=== PATIENT | female | born 1990 | race Caucasian/White ===

== ENCOUNTER 2016-07-29 17:15 | Inpatient (IN) | payer OTHER ==
[~2016-07-29] VITALS: Ht 170.2 cm; Wt 84.0 kg
[2016-07-29 17:33] VITALS: BP 133/90
[2016-07-29] MEDS ORDERED: PRENTAB9 PO (17:49)
[2016-07-29 19:15] VITALS: BP 129/88
[2016-07-29 21:20] VITALS: BP 138/91
[2016-07-29 21:47] LABS: MEAN CORPUSCULAR HEMOGLOBIN 32.3 pg (27.0-33.0); MEAN CORPUSCULAR HGB CONC 35.4 g/dl (32.0-36.5); MEAN CORPUSCULAR VOLUME 91.2 fl (80.0-96.0); RED CELL DISTRIBUTION WIDTH 12.4 % (11.5-14.5); WHITE BLOOD COUNT 10.5 K/mm3 (4.0-10.0)
[2016-07-29 21:58] LABS: ALT/SGPT 21 U/L (12-78); AST/SGOT 24 U/L (15-37); BILIRUBIN,TOTAL 0.3 MG/DL (0.2-1.0); CREATININE FOR GFR 0.79 MG/DL (0.55-1.02); GLOMERULAR FILTRATION RATE > 60.0 (>60); URIC ACID 4.8 MG/DL (2.6-6.0)
[2016-07-29 23:51] VITALS: BP 132/76
[2016-07-30] VITALS (17 sets, daily range): BP systolic 125–150; BP diastolic 65–89
[2016-07-30] MEDS ORDERED: DOCUSATE SODIUM 100 MG CAP PO PRN (01:15)
[2016-07-30] MEDS ORDERED: RHOGAM 300 MCG (1500 IU) INJ (J2790) IM SCH (01:15)
[2016-07-30] MEDS ORDERED: MEASLES,MUMPS,RUBELLA VACCINE INJ (MMR-II) (90707) SC SCH (01:15)
[2016-07-30] MEDS ORDERED: IBUPROFEN 800 MG TAB PO PRN (01:15)
[2016-07-30] MEDS ORDERED: ONDANSETRON 4MG/2ML VIAL (J2405) IV PRN (01:15)
[2016-07-30] MEDS ORDERED: ACETAMINOPHEN 500 MG TAB PO PRN (01:15)
[2016-07-30] MEDS ORDERED: DIBUCAINE 1% OINTMENT 30GM TOP PRN (01:15)
[2016-07-30] MEDS ORDERED: METHYLERGONOVINE MALEATE 0.2 MG TAB PO PRN (01:15)
[2016-07-30] MEDS ORDERED: OXYTOCIN DRIP 30 UNITS in APPROPRIATE DILUENT 1 EA IV STA ×2 (01:28→03:16)
[2016-07-30] MEDS ORDERED: OXYTOCIN 30 UNITS IN 0.9% NaCl 500ML IV BAG (J2590) As Ordered ONE (03:11)
[2016-07-30] MEDS ORDERED: miSOPROStol 200 MCG TAB (S0191) PR ONE (03:30)
[2016-07-30 10:13] LABS: MEAN CORPUSCULAR HEMOGLOBIN 32.3 pg (27.0-33.0); MEAN CORPUSCULAR HGB CONC 35.3 g/dl (32.0-36.5); MEAN CORPUSCULAR VOLUME 91.5 fl (80.0-96.0); RED CELL DISTRIBUTION WIDTH 13.1 % (11.5-14.5); WHITE BLOOD COUNT 13.2 K/mm3 (4.0-10.0)
[2016-07-30] MEDS: PRENATAL VITAMIN TAB PO SCH (12:03)
[2016-07-31 06:08] VITALS: BP 106/58
[2016-07-31] MEDS: PRENATAL VITAMIN TAB PO SCH (08:17)
[2016-07-31] MEDS ORDERED: ACET50TA PO (15:15)
[2016-07-31] MEDS ORDERED: IBUP-1114 PO (15:23)
== END 2016-07-31 19:40 | disposition home or self-care (01) | DRG 774 ==
LOC: M LDO 17:15 → M LDI 20:36 → M OBS 07-30 06:18
PROVIDERS: ADMIT Advanced Practice Midwife; ATTEND Advanced Practice Midwife
PROC: 10E0XZZ Delivery of Products of Conception, External Approach (ICD-10-PCS; principal; 2016-07-29)
DX: O72.1 Other immediate postpartum hemorrhage (principal); Z37.0 Single live birth; Z3A.39 39 weeks gestation of pregnancy; O69.82X0 Labor and delivery complicated by other cord entanglement, without compression, not applicable or unspecified